=== PATIENT | female | born 1965 | race Caucasian/White ===

== ENCOUNTER 2021-06-02 22:40 | Emergency (ER) | payer MEDICAID, OTHER ==
[~2021-06-02] VITALS: Ht 162.5 cm; Wt 52.6 kg
[~2021-06-02 22:40] MED LIST: BUPR1FIL3 SL; BUSP15TA60 PO; CLN.1T PO; CLON1TAB13 PO; CLON1TAB27 PO; ESTR1TAB24 PO; HYDR-34 PO; KETO10TA PO; MEDR2.5T6 PO; OLAN2.5T3 PO; TRM50T PO
--- NOTE | 2021-06-02 23:03 | ED General ---
General Stated Complaint: HEADACHE/NAUSEA Source of Information: Patient, EMS Exam Limitations: No Limitations History of Present Illness Date Seen by Provider: Jun 02, 2021 Time Seen by Provider: 22:47 Initial Comments 55-year-old female with past medical history of hypertension, previous hepatitis C which has been treated, opioid use disorder now on Suboxone coming in via EMS from home due to elevated blood pressure and headache. She says her blood pressure is normally in the 150s systolic and for the past 2 days it's been in the 200s. She says it was 200/100 yesterday. She has had an intermittent mild to moderate headache which comes and goes. She took Advil earlier today which made it go away. It was not immediate in onset, and every time it comes on it is slow in onset. Feels like her typical headaches when she gets elevated blood pressure. She takes clonidine 0.1 mg once a day and has taken the already today. She denies any chest pain, shortness of breath, abdominal pain, current nausea, weakness, numbness, current vision changes, voice changes, or any other concerns. Allergies and Home Medications Allergies Coded Allergies: No Known Drug Allergies (Unverified , 06/02/21) Patient Home Medication List Home Medication List Reviewed: Yes Review of Systems Review of Systems Constitutional: No chills, No fever EENTM: No blurred vision Respiratory: No cough, No short of breath Cardiovascular: No chest pain, No syncope Gastrointestinal: No abdominal pain, No diarrhea, No nausea, No vomiting Genitourinary: no symptoms reported Musculoskeletal: no symptoms reported Skin: no symptoms reported Psychiatric/Neurological: Headache; Denies Numbness, Denies Paresthesia, Denies Seizure, Denies Weakness Hematologic/Lymphatic: No Symptoms Reported Immunological/Allergic: no symptoms reported All Other Systems Reviewed Negative Unless Noted: Yes Past Goqnniu-Htszpm-Lewbaz Hx Patient Social History Tobacco Use?: Yes Past Medical History Surgeries: Yes Section, Gallbladder Physical Exam Vital Signs Vital Signs - First Documented 06/02/21 22:44 Temp 37.0 Pulse 85 Resp 18 B/P (MAP) 208/112 (144) Pulse Ox 97 O2 Delivery Room Air Capillary Refill : Height, Weight, BMI Height: '" Weight: lbs. oz. kg; BMI Method: General Appearance: No Apparent Distress, WD/WN Eyes: Bilateral Eye Normal Inspection, Bilateral Eye PERRL, Bilateral Eye EOMI HEENT: PERRL/EOMI, Normal ENT Inspection, Pharynx Normal Neck: Full Range of Motion, Normal Inspection, Non Tender, Supple Respiratory: Chest Non Tender, Lungs Clear, Normal Breath Sounds, No Accessory Muscle Use, No Respiratory Distress Cardiovascular: Regular Rate, Rhythm, No Edema, Normal Peripheral Pulses Gastrointestinal: Normal Bowel Sounds, Non Tender, Soft; No Distended, No Guarding Back: Normal Inspection, No CVA Tenderness, No Vertebral Tenderness Extremity: Normal Capillary Refill, Normal Inspection, Normal Range of Motion, Non Tender, No Calf Tenderness, No Pedal Edema Neurologic/Psychiatric: Alert, Oriented x3, No Motor/Sensory Deficits, Normal Mood/Affect, lead systems 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 II-XII Norm as Tested, Other (Normal gait, normal axoufv-pd-gxkg) Skin: Normal Color, Warm/Dry Lymphatic: No Adenopathy Progress/Results/Core Measures Suspected Sepsis SIRS Temperature: Pulse: Respiratory Rate: Blood Pressure / Mean: Results/Orders My Orders Orders - SHERLEY JAIME MD Lisinopril Tablet (Zestril Tablet) (06/02/21 23:15) Nitroglycerin Ointment (Nitrobid Ointme (06/02/21 23:15) Acetaminophen Tablet (Tylenol Tablet) (06/02/21 23:15) Diphenhydramine Injection (Benadryl Inje (06/02/21 23:15) Prochlorperazine Injection (Compazine In (06/02/21 23:15) Ekg Tracing (06/02/21 23:03) Rx-Ondansetron Po (Rx-Zofran Po) (06/02/21 23:55) Medications Given in ED Current Medications Medications Dose Ordered Sig/Tom Route Start Time Stop Time Status Last Admin Dose Admin Lisinopril 10 mg ONCE ONCE PO 06/02/21 23:15 06/02/21 23:16 DC 06/02/21 23:13 10 MG Nitroglycerin 1 inch ONCE ONCE TOP 06/02/21 23:15 06/02/21 23:16 DC 06/02/21 23:13 1 INCH Prochlorperazine Edisylate 5 mg ONCE ONCE IM 06/02/21 23:15 06/02/21 23:16 DC 06/02/21 23:13 5 MG Vital Signs/I&O 06/02/21 22:44 Temp 37.0 Pulse 85 Resp 18 B/P (MAP) 208/112 (144) Pulse Ox 97 O2 Delivery Room Air Capillary Refill : Progress Note : Progress Note 55-year-old female with above history coming in due to elevated blood pressure and headache. ABCs were intact and vitals were stable on presentation. Physical exam with nonfocal neuro exam, she is well-appearing, in no abnormalities otherwise. The headache is slow onset, mild, and not consistent with a subarachnoid hemorrhage. She says almost completely gone but that she would like some medication for it. Gave her an IM cocktail for headaches. We'll give her lisinopril which she said she previously took, but has not been on it recently and we'll give her Nitropaste until the lisinopril kicks in. Her blood pressure came down and her headache improved. I told her to call her regular doctor on Friday to discuss adding medications to her regimen given clearly her blood pressure is out of control. I recommended she take her clonidine twice a day instead of once a day since that is how it is written. She was then discharged home in stable condition with strict return precautions. ECG Initial ECG Impression Date: Jun 02, 2021 Initial ECG Impression Time: 23:15 Initial ECG Rate: 71 Initial ECG Rhythm: Normal Sinus Comment Narrow QRS, normal axis, T wave inversions in V1 and V2 but no significant ST changes Departure Impression Primary Impression: Headache Qualified Codes: R51.9 - Headache, unspecified Additional Impression: Hypertension Qualified Codes: I10 - Essential (primary) hypertension Disposition: 01 HOME, SELF-CARE Condition: Stable Departure-Patient Inst. Decision time for Depature: 23:57 Referrals: NO,LOCAL PHYSICIAN (PCP/Family) Primary Care Physician Patient Instructions: Headache, Adult ED, High Blood Pressure ED Add. Discharge Instructions: Please call your doctor on Friday to discuss taking more medications for blood pressure. I do recommend you take the clonidine twice a day until you are able to follow-up because your blood pressure was severely elevated today. If you are having severe chest pain, severe shortness of breath, or other worst headache of her life I do recommend you come back to the ER. SHERLEY JAIME MD Jun 02, 2021 23:03
[2021-06-02] MEDS: ACETAMINOPHEN 500 MG TAB (TYLENOL) PO ONE ×2 (23:13→23:17)
[2021-06-02] MEDS ORDERED: PROCHLORPERAZINE 10 MG/2ML INJ (COMPAZINE) IM ONE (23:15)
[2021-06-02] MEDS ORDERED: diphenhydrAMINE 50 MG/ML INJ (BENADRYL) IM ONE (23:15)
[2021-06-02] MEDS ORDERED: NITROGLYCERIN 2% OINT 1 GM UNIT DOSE PACKET TOP ONE (23:15)
[2021-06-02] MEDS ORDERED: lisINopril 10 MG (PRINIVIL) TABLET PO ONE (23:15)
[2021-06-02 23:55] VITALS: BP 160/97
[2021-06-02] MEDS ORDERED: RX-ONDANSETRON 4 MG ODT (ZOFRAN) PPK #4 PO STA (23:55)
[2021-06-02] MEDS ORDERED: ONDANSETRON 4 MG (ZOFRAN) ORAL DISSOLVE TAB PO STA (23:55)
== END 2021-06-03 00:05 | disposition home or self-care (01) ==
LOC: ER FS 22:51
DX: R51.9 Headache, unspecified (principal); I10 Essential (primary) hypertension; Z72.0 Tobacco use
CPT/HCPCS: 93005

== ENCOUNTER 2021-09-10 02:24 | Emergency (ER) | payer MEDICAID ==
[~2021-09-10] VITALS: Ht 162.5 cm; Wt 47.9 kg
[2021-09-10 02:30] VITALS: BP 176/110
--- NOTE | 2021-09-10 03:08 | ED Psychosocial ---
General Chief Complaint: Psych/Social Disorder Stated Complaint: MENTAL HEALTH SCREEN History of Present Illness Date Seen by Provider: September 10, 2021 Time Seen by Provider: 02:42 Initial Comments 55-year-old female with PMH of drug abuse on subaxone and Delta 8/ depression/hypertension, is here with complaints of feeling depressed, stressed, and feels like nobody understands her. Patient is not suicidal and does not have a plan to kill herself.Pt has stresses with her family and finances. No physical complaints at this time. (ADEOLA LI MD) Allergies and Home Medications Allergies Coded Allergies: paroxetine (Verified Adverse Reaction, Unknown, 06/04/21) causes agitation Patient Home Medication List Home Medication List Reviewed: Yes (ADEOLA LI MD) Buprenorphine HCl/Naloxone HCl (Suboxone 8 mg-2 mg Sl Film) 1 Each Film, 1 FILM SL TID, (Reported) Entered as Reported by: YAA DIOP on 10/08/17207 Last Action: Last Taken Edited Clonazepam (Clonazepam) 1 Mg Tablet, 1 MG PO TID, (Reported) Entered as Reported by: ALEKSANDER BOLTON on 10/08/17925 Last Action: Last Taken Edited Clonidine HCl (Clonidine HCl) 0.1 Mg Tablet, 0.1 MG PO BID, (Reported) Entered as Reported by: YAA DIOP on 10/08/17207 Last Action: Last Taken Edited Ergocalciferol (Vitamin D2) (Vitamin D2) 1,250 Mcg (09628 Unit) Capsule, 50,000 UNITS PO UD, (Reported) Entered as Reported by: ERMIAS DIAZ on 09/10/21 0426 Last Action: New Order Estradiol (Estradiol Tablet) 1 Mg Tablet, 1 MG PO DAILY, (Reported) Entered as Reported by: YAA DIOP on 10/08/17207 Last Action: Last Taken Edited Discontinued Medications Buspirone HCl (Buspirone HCl) 15 Mg Tablet, 15 MG PO BID, (Reported) Discontinued Reason: Referral/FU Appt-Addtl Entered as Reported by: YAA DIOP on 10/08/17207 Last Action: Discontinued Ketorolac Tromethamine (Ketorolac Tromethamine) 10 Mg Tablet, 10 MG PO Q6H Discontinued Reason: Referral/FU Appt-Addtl Prescribed by: KENDRICK SHANKAR on 06/18/18 0855 Last Action: Discontinued Olanzapine (Zyprexa) 2.5 Mg Tablet, 2.5 MG PO DAILY Discontinued Reason: Referral/FU Appt-Addtl Prescribed by: JULIO JUNE on 02/09/21 0755 Last Action: Discontinued Review of Systems Constitutional: no symptoms reported EENTM: no symptoms reported Respiratory: no symptoms reported Cardiovascular: no symptoms reported Gastrointestinal: no symptoms reported Genitourinary: no symptoms reported Skin: no symptoms reported Psychiatric/Neurological: Depressed (ADEOLA LI MD) Past Fvviajo-Gbfqcw-Bbtftt Hx Seasonal Allergies Seasonal Allergies: No (ADEOLA LI MD) Past Medical History Surgeries: Yes Section, Gallbladder Respiratory: Yes COPD, Emphysema Currently Using CPAP: No Currently Using BIPAP: No Cardiac: Yes Hypertension Neurological: Yes Headaches /Migraines Genitourinary: No Gastrointestinal: Yes Abdominal Hernia, Hepatitis Musculoskeletal: Yes (CHRONIC PAIN SYNDROME) Endocrine: No HEENT: No Cancer: No Lung Psychosocial: Yes Anxiety, Personality Disorder Integumentary: No (CYST ON NOSE) Blood Disorders: No Adverse Reaction/Blood Tranf: No (ADEOLA LI MD) Family Medical History Psychosocial problem 19 MOTHER (schizrenia) Psychiatric Problems (ADEOLA LI MD) Physical Exam Vital Signs - First Documented 09/10/21 02:30 Temp 37.2 Pulse 57 Resp 22 B/P (MAP) 176/110 (132) Pulse Ox 98 O2 Delivery Room Air (SHERLEY JAIME MD) Capillary Refill : (ADEOLA LI MD) Height, Weight, BMI Height: 5'4.00" Weight: 105lbs. 0.0oz. 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 tested, no motor/sensory deficits, alert, oriented x 3, depressed affect Behavior/Eye Contact: cooperative Skin: normal color (ADEOLA LI MD) Progress/Results/Core Measures Results/Orders Lab Results Laboratory Tests Test 09/10/21 02:35 09/10/21 02:45 Range/Units Urine Color YELLOW Urine Clarity CLEAR Urine pH 6.0 5-9 Urine Specific [place] >=1.030 1.016-1.022 Urine Protein NEGATIVE NEGATIVE Urine Glucose (UA) NEGATIVE NEGATIVE Urine Ketones NEGATIVE NEGATIVE Urine Nitrite NEGATIVE NEGATIVE Urine Bilirubin 1+ H NEGATIVE Urine Urobilinogen 0.2 < = 1.0 MG/DL Urine Leukocyte Esterase NEGATIVE NEGATIVE Urine RBC (Auto) TRACE-I H NEGATIVE Urine RBC 5-10 H /HPF Urine WBC 10-25 H /HPF Urine Squamous Epithelial Cells 2-5 /HPF Urine Crystals NONE /LPF Urine Bacteria FEW H /HPF Urine Casts NONE /LPF Urine Mucus LARGE H /LPF Urine Culture Indicated YES Urine Opiates Screen NEGATIVE NEGATIVE Urine Oxycodone Screen NEGATIVE NEGATIVE Urine Methadone Screen NEGATIVE NEGATIVE Urine Propoxyphene Screen NEGATIVE NEGATIVE Urine Barbiturates Screen NEGATIVE NEGATIVE Ur Tricyclic Antidepressants Screen NEGATIVE NEGATIVE Urine Phencyclidine Screen NEGATIVE NEGATIVE Urine Amphetamines Screen NEGATIVE NEGATIVE Urine Methamphetamines Screen NEGATIVE NEGATIVE Urine Benzodiazepines Screen POSITIVE H NEGATIVE Urine Cocaine Screen NEGATIVE NEGATIVE Urine Cannabinoids Screen POSITIVE H NEGATIVE White Blood Count 7.7 4.3-11.0 10^3/uL Red Blood Count 5.02 3.80-5.11 10^6/uL Hemoglobin 15.1 11.5-16.0 g/dL Hematocrit 44 35-52 % Mean Corpuscular Volume 88 80-99 fL Mean Corpuscular Hemoglobin 30 25-34 pg Mean Corpuscular Hemoglobin Concent 34 32-36 g/dL Red Cell Distribution Width 12.9 10.0-14.5 % Platelet Count 213 130-400 10^3/uL Mean Platelet Volume 11.8 9.0-12.2 fL Immature Granulocyte % (Auto) 0 % Neutrophils (%) (Auto) 56 42-75 % Lymphocytes (%) (Auto) 32 12-44 % Monocytes (%) (Auto) 9 0-12 % Eosinophils (%) (Auto) 2 0-10 % Basophils (%) (Auto) 1 0-10 % Neutrophils # (Auto) 4.3 1.8-7.8 10^3/uL Lymphocytes # (Auto) 2.5 1.0-4.0 10^3/uL Monocytes # (Auto) 0.7 0.0-1.0 10^3/uL Eosinophils # (Auto) 0.2 0.0-0.3 10^3/uL Basophils # (Auto) 0.1 0.0-0.1 10^3/uL Immature Granulocyte # (Auto) 0.0 0.0-0.1 10^3/uL Sodium Level 141 135-145 MMOL/L Potassium Level 3.5 L 3.6-5.0 MMOL/L Chloride Level 102 98-107 MMOL/L Carbon Dioxide Level 26 21-32 MMOL/L Anion Gap 13 5-14 MMOL/L Blood Urea Nitrogen 19 H 7-18 MG/DL Creatinine 0.78 0.60-1.30 MG/DL Estimat Glomerular Filtration Rate 89 BUN/Creatinine Ratio 24 Glucose Level 97 70-105 MG/DL Calcium Level 9.7 8.5-10.1 MG/DL Corrected Calcium 8.5-10.1 MG/DL Total Bilirubin 0.5 0.1-1.0 MG/DL Aspartate Amino Transf (AST/SGOT) 28 5-34 U/L Alanine Aminotransferase (ALT/SGPT) 17 0-55 U/L Alkaline Phosphatase 114 40-136 U/L Total Protein 8.1 6.4-8.2 GM/DL Albumin 4.7 H 3.2-4.5 GM/DL Salicylates Level < 0.3 L 5.0-20.0 MG/DL Acetaminophen Level < 10 L 10-30 UG/ML Serum Alcohol < 10 <10 MG/DL (SHERLEY JAIME MD) My Orders Orders - SHERLEY JAIME MD Nicotine Patch (Nicoderm Patch) (09/11/21 11:45) Nicotine Patch (Nicoderm Patch) (09/10/21 11:45) Nicotine Patch (Nicoderm Patch) (09/10/21 11:51) (SHERLEY JAIME MD) Vital Signs/I&O 09/10/21 11:52 Pulse 60 Resp 14 B/P (MAP) 140/77 Pulse Ox 95 O2 Delivery Room Air (SHERLEY JAIME MD) Progress Progress Note : Progress Note - sign out Dr Jaime 1. DEPRESSION: - Labs and urine - EKG - Psych screening: Pt got into an argument with the screener and she started yelling at the screener. Pt is opting to leave AMA. - Pt was initially sitting in the waiting room for an hour or so, and finally the front desk worker asker her if he could help her, and she started screaming at him. Finally police went out to calm the situation and then the nurses convinced her to check in. Pt appears to have anger management issues. She also believes the hospital put the marijuana in her UDS and trying to sabotage her. Pt states she takes Delta 8. (ADEOLA LI MD) Progress Note : Progress Note Patient was screened and was referred to [facility]. They accepted her for transfer. (SHERLEY JAIME MD) Initial ECG Impression Date: September 10, 2021 Initial ECG Impression Time: 03:08 Initial ECG Rate: 51 Initial ECG Rhythm: S.Michael Comment Narrow QRS, normal axis, no significant ST changes or T wave abnormalities (SHERLEY JAIME MD) Departure Impression Primary Impression: Depression Qualified Codes: F32.A - Depression, unspecified Disposition: 65 XFER TO PSYCH HOSP/UNIT Condition: Stable Admissions Decision to Admit/Date: September 10, 2021 Time/Decision to Admit Time: 14:00 (SHERLEY JAIME MD) Transfer Transfer Reason: Exceeds level of care Time Spoke to Accepting Phy: 14:45 Transfer Progress Notes Accepted to [facility]. Awaiting [facility] to coordinate the transfer. Transfer Facility: [facility] Method of Transfer: [facility] (SHERLEY JAIME MD) Departure-Patient Inst. Referrals: NO,LOCAL PHYSICIAN (PCP/Family) Primary Care Physician ADEOLA LI MD September 10, 2021 03:08 SHERLEY JAIME MD September 10, 2021 07:11
[2021-09-10 03:22] LABS: BASOPHILS # (AUTO) 0.1 10^3/uL (0.0-0.1); BASOPHILS % (AUTO) 1 % (0-10); EOSINOPHILS # (AUTO) 0.2 10^3/uL (0.0-0.3); EOSINOPHILS % (AUTO) 2 % (0-10); HEMATOCRIT 44 % (35-52); HEMOGLOBIN 15.1 g/dL (11.5-16.0); LYMPHOCYTES # (AUTO) 2.5 10^3/uL (1.0-4.0); LYMPHOCYTES % (AUTO) 32 % (12-44); MEAN CORPUSCULAR HEMOGLOBIN 30 pg (25-34); MEAN CORPUSCULAR HGB CONC 34 g/dL (32-36); MEAN CORPUSCULAR VOLUME 88 fL (80-99); MEAN PLATELET VOLUME 11.8 fL (9.0-12.2); MONOCYTES # (AUTO) 0.7 10^3/uL (0.0-1.0); MONOCYTES % (AUTO) 9 % (0-12); NEUTROPHILS # (AUTO) 4.3 10^3/uL (1.8-7.8); NEUTROPHILS % (AUTO) 56 % (42-75); PLATELET COUNT 213 10^3/uL (130-400); WHITE BLOOD COUNT 7.7 10^3/uL (4.3-11.0)
[2021-09-10 03:23] LABS: CLARITY,URINE CLEAR; COLOR,URINE YELLOW; GLUCOSE, URINE (UA) NEGATIVE (NEGATIVE); KETONES,URINE NEGATIVE (NEGATIVE); LEUKOCYTE ESTERASE ,URINE NEGATIVE (NEGATIVE); NITRITE,URINE NEGATIVE (NEGATIVE); PROTEIN,URINE NEGATIVE (NEGATIVE)
[2021-09-10 03:29] LABS: BACTERIA,URINE FEW /HPF
[2021-09-10 03:30] LABS: BILIRUBIN,URINE 1+ (NEGATIVE)
[2021-09-10 03:34] LABS: AMPHETAMINE SCREEN, URINE NEGATIVE (NEGATIVE); BARBITURATE SCREEN URINE NEGATIVE (NEGATIVE); BENZODIAZEPINES SCREEN URINE POSITIVE (NEGATIVE); CANNABINOID SCREEN, URINE POSITIVE (NEGATIVE); COCAINE SCREEN URINE NEGATIVE (NEGATIVE); METHADONE STAT NEGATIVE (NEGATIVE); OPIATE SCREEN URINE NEGATIVE (NEGATIVE); OXYCODONE STAT NEGATIVE (NEGATIVE); PROPOXYPHENE STAT NEGATIVE (NEGATIVE); TRICYCLIC ANTIDEPRESSANTS SCRE NEGATIVE (NEGATIVE)
[2021-09-10 03:44] LABS: ACETAMINOPHEN < 10 UG/ML (10-30); ALANINE AMINOTRANSFERASE 17 U/L (0-55); ALBUMIN 4.7 GM/DL (3.2-4.5); ALKALINE PHOSPHATASE 114 U/L (40-136); BILIRUBIN,TOTAL 0.5 MG/DL (0.1-1.0); BUN/CREATININE RATIO 24; CALCIUM 9.7 MG/DL (8.5-10.1); CARBON DIOXIDE 26 MMOL/L (21-32); CHLORIDE 102 MMOL/L (98-107); CREATININE SERUM 0.78 MG/DL (0.60-1.30); GFR ESTIMATED 89; GLUCOSE 97 MG/DL (70-105); POTASSIUM 3.5 MMOL/L (3.6-5.0); SALICYLATE < 0.3 MG/DL (5.0-20.0); SODIUM 141 MMOL/L (135-145); TOTAL PROTEIN 8.1 GM/DL (6.4-8.2)
[2021-09-10] MEDS ORDERED: ERGO1250 PO (04:26)
[2021-09-10] MEDS ORDERED: NICOTINE 21 MG (NICODERM) PATCH TD SCH (11:45)
[2021-09-10] MEDS ORDERED: NICOTINE 21 MG (NICODERM) PATCH ONE (11:51)
[2021-09-11] MEDS ORDERED: NICOTINE 21 MG (NICODERM) PATCH TD SCH (11:45)
== END 2021-09-10 15:45 ==
LOC: EDUNIT# 02:24 → ER FS 02:27
DX: F32.A Depression, unspecified (principal)
CPT/HCPCS: 36415; 80053; 80306; 81000; 85025; 87088; 93005; 99283; G0480 ×3; 80320; 80329

== ENCOUNTER 2022-09-05 18:05 | Emergency (ER) | payer MEDICAID ==
[~2022-09-05] VITALS: Ht 165 cm; Wt 58.0 kg
[~2022-09-05 18:05] MED LIST changes: +ERGO1250 PO
[2022-09-05 18:23] VITALS: BP 160/88
== END 2022-09-05 18:15 | disposition left against medical advice (07) ==
LOC: EDUNIT# 18:05 → ER FS 18:06
DX: I10 Essential (primary) hypertension (principal); Z79.899 Other long term (current) drug therapy; Z28.310 Unvaccinated for COVID-19
CPT/HCPCS: 99281

== ENCOUNTER 2023-03-01 21:35 | Emergency (ER) | payer MEDICAID ==
[~2023-03-01] VITALS: Ht 157.4 cm; Wt 58.2 kg
--- NOTE | 2023-03-01 22:09 | ED General ---
General Stated Complaint: HBP History of Present Illness Date Seen by Provider: Mar 01, 2023 Time Seen by Provider: 21:50 Initial Comments 57-year-old female with PMH of HTN/drug addiction on methadone/Anxiety, is brought in by EMS with complaints of elevated blood pressure. Patient had not taken her night blood pressure medication and she took clonidine right before EMS appeared at her home. Denies headache, chest pain, palpitations, shortness of breath, blurry vision, neurological deficits. Allergies and Home Medications Allergies Coded Allergies: paroxetine (Verified Adverse Reaction, Unknown, 06/04/21) causes agitation Patient Home Medication List Home Medication List Reviewed: Yes Buprenorphine HCl/Naloxone HCl (Suboxone 8 mg-2 mg Sl Film) 1 Each Film, 1 FILM SL TID, (Reported) Entered as Reported by: YAA DIOP on 10/08/17207 Last Action: Reviewed Clonazepam (Clonazepam) 1 Mg Tablet, 1 MG PO TID, (Reported) Entered as Reported by: ALEKSANDER BOLTON on 10/08/17925 Last Action: Reviewed Clonidine HCl (Clonidine HCl) 0.1 Mg Tablet, 0.1 MG PO BID, (Reported) Entered as Reported by: YAA DIOP on 10/08/17207 Last Action: Reviewed Ergocalciferol (Vitamin D2) (Vitamin D2) 1,250 Mcg (54094 Unit) Capsule, 50,000 UNITS PO UD, (Reported) Entered as Reported by: ERMIAS DIAZ on 09/10/21425 Estradiol (Estradiol Tablet) 1 Mg Tablet, 1 MG PO DAILY, (Reported) Entered as Reported by: YAA DIOP on 10/08/17207 Lisinopril (Lisinopril) 5 Mg Tablet, 5 MG PO DAILY, (Reported) Entered as Reported by: ERMIAS DIAZ on 03/01/232221 Last Action: New Order Olanzapine (Olanzapine) 7.5 Mg Tablet, 7.5 MG PO DAILY, (Reported) Entered as Reported by: ERMIAS DIAZ on 03/01/232221 Last Action: New Order Review of Systems Review of Systems Constitutional: no symptoms reported EENTM: no symptoms reported Respiratory: no symptoms reported Cardiovascular: no symptoms reported Gastrointestinal: no symptoms reported Genitourinary: no symptoms reported Musculoskeletal: no symptoms reported Skin: no symptoms reported Psychiatric/Neurological: No Symptoms Reported Past Dtyaqai-Vypyjc-Xyprgx Hx Immunizations Up To Date First/Initial COVID19 Vaccinat: unvaccinated Seasonal Allergies Seasonal Allergies: No Past Medical History Surgery/Hospitalization HX: COPD, Emphysema, Anxiety/Bipolar/Insomnia, Chronic pain, HTN, hx H. Pylori Surgeries: Yes Section, Gallbladder Respiratory: Yes COPD, Emphysema Currently Using CPAP: No Currently Using BIPAP: No Cardiac: Yes Hypertension Neurological: Yes Headaches /Migraines Genitourinary: No Gastrointestinal: Yes Abdominal Hernia, Hepatitis Musculoskeletal: Yes (CHRONIC PAIN SYNDROME) Endocrine: No HEENT: No Cancer: No Lung Psychosocial: Yes Anxiety, Personality Disorder Integumentary: No (CYST ON NOSE) Blood Disorders: No Adverse Reaction/Blood Tranf: No Family Medical History Psychosocial problem 19 MOTHER (schizrenia) Psychiatric Problems Physical Exam Vital Signs Vital Signs - First Documented 03/01/23 21:35 Temp 36.8 Pulse 81 Resp 16 B/P (MAP) 161/99 (119) Pulse Ox 97 O2 Delivery Room Air Capillary Refill : Height, Weight, BMI Height: 5'4.00" Weight: 105lbs. 0.0oz. 47.437583lv; 21.00 BMI Method:Estimated General Appearance: No Apparent Distress, Anxious HEENT: PERRL/EOMI Neck: Full Range of Motion Respiratory: Lungs Clear, Normal Breath Sounds Cardiovascular: Regular Rate, Rhythm, No Edema Gastrointestinal: Non Tender, Soft Neurologic/Psychiatric: Alert, Oriented x3, No Motor/Sensory Deficits, Normal Mood/Affect, bar pilot II-XII Norm as Tested Skin: Normal Color Progress/Results/Core Measures Suspected Sepsis SIRS Temperature: Pulse: Respiratory Rate: Blood Pressure / Mean: Results/Orders Vital Signs/I&O 03/01/23 21:35 Temp 36.8 Pulse 81 Resp 16 B/P (MAP) 161/99 (119) Pulse Ox 97 O2 Delivery Room Air Capillary Refill : Progress Note : Progress Note 1. ELEVATED BLOOD PRESSURE: - BP was 160/95 for EMS. After one hour in the hour, BP is 145/90 - Pt took Clonidine at home right before EMS came to her door. - Pt does not have any symptoms - Follow up with PCP within 7days. Advised to keep BP log. Departure Impression Primary Impression: Elevated blood pressure reading with diagnosis of hypertension Disposition: 01 HOME, SELF-CARE Condition: Improved Departure-Patient Inst. Referrals: FRANSISCA WARD DO (PCP) Primary Care Physician JUSTINA MONTANO APRN (Family) Primary Care Physician Patient Instructions: High Blood Pressure (DC) Add. Discharge Instructions: - Follow up with PCP within 7days. Advised to keep BP log. ADEOLA LI MD Mar 01, 2023 22:08
[2023-03-01] MEDS ORDERED: LISI5TAB20 PO (22:22)
[2023-03-01] MEDS ORDERED: OLAN7.5T18 PO (22:22)
[2023-03-01] MEDS ORDERED: IBUPROFEN 200 MG TABLET PO ONE (23:00)
[2023-03-01 23:12] VITALS: BP 145/99
== END 2023-03-01 22:55 | disposition home or self-care (01) ==
LOC: EDUNIT# 21:39 → ER FS 21:40
DX: I10 Essential (primary) hypertension (principal); Z79.899 Other long term (current) drug therapy
CPT/HCPCS: 99283

== ENCOUNTER 2023-03-23 19:32 | Emergency (ER) | payer MEDICAID ==
[~2023-03-23] VITALS: Ht 165.1 cm; Wt 55.2 kg
[~2023-03-23 19:32] MED LIST changes: +LISI5TAB20 PO; +OLAN7.5T18 PO
[2023-03-23] MEDS ORDERED: NS IV 500 ML 500 ML IV STA (19:45)
--- NOTE | 2023-03-23 19:49 | ED General ---
General Stated Complaint: BP|DIZZNESS Source of Information: Patient Exam Limitations: No Limitations History of Present Illness Date Seen by Provider: Mar 23, 2023 Time Seen by Provider: 19:34 Initial Comments 57-year-old female with past medical history of hypertension, anxiety, chronic pain coming in due to elevated blood pressure and dizziness. She typically takes lisinopril at a low dose as well as clonidine at nighttime. She took the clonidine about an hour and a half prior to arrival. Blood pressure has been 160s to 170s at the highest over 110s. It has been going on for roughly 3 days. She says normally she is around 150s over 100. Feels sometimes like the room is spinning. Denies any headache, vision changes otherwise or currently, chest pain, shortness of breath, nausea, vomiting, weakness, numbness, diarrhea, dysuria, rash, or any other concerns. Allergies and Home Medications Allergies Coded Allergies: paroxetine (Verified Adverse Reaction, Unknown, 06/04/21) causes agitation Patient Home Medication List Home Medication List Reviewed: Yes Buprenorphine HCl/Naloxone HCl (Suboxone 8 mg-2 mg Sl Film) 1 Each Film, 1 FILM SL TID, (Reported) Entered as Reported by: YAA DIOP on 10/08/17 020 Clonazepam (Clonazepam) 1 Mg Tablet, 1 MG PO TID, (Reported) Entered as Reported by: ALEKSANDER BOLTON on 10/08/17 0926 Clonidine HCl (Clonidine HCl) 0.1 Mg Tablet, 0.1 MG PO BID, (Reported) Entered as Reported by: YAA DIOP on 10/08/17 020 Ergocalciferol (Vitamin D2) (Vitamin D2) 1,250 Mcg (14590 Unit) Capsule, 50,000 UNITS PO UD, (Reported) Entered as Reported by: ERMIAS DIAZ on 09/10/21 0426 Estradiol (Estradiol Tablet) 1 Mg Tablet, 1 MG PO DAILY, (Reported) Entered as Reported by: YAA DIOP on 10/08/17 020 Lisinopril (Lisinopril) 5 Mg Tablet, 5 MG PO DAILY, (Reported) Entered as Reported by: ERMIAS DIAZ on 03/01/23 2222 Meclizine HCl (Meclizine HCl) 25 Mg Tablet, 25 MG PO BID PRN for VERTIGO Prescribed by: SHERLEY JAIME on 03/23/232041 Olanzapine (Olanzapine) 7.5 Mg Tablet, 7.5 MG PO DAILY, (Reported) Entered as Reported by: ERMIAS DIAZ on 03/01/232221 Review of Systems Review of Systems Constitutional: No fever EENTM: no symptoms reported Respiratory: no symptoms reported Cardiovascular: see HPI Gastrointestinal: no symptoms reported Genitourinary: no symptoms reported Musculoskeletal: no symptoms reported Skin: no symptoms reported Psychiatric/Neurological: See HPI Hematologic/Lymphatic: No Symptoms Reported Past [id number] Hx Patient Social History Tobacco Use?: Yes Tobacco type used: Cigarettes Immunizations Up To Date First/Initial COVID19 Vaccinat: unvaccinated Second COVID19 Vaccination Renzo: unvaccinated Third COVID19 Vaccination Date: unvaccinated Seasonal Allergies Seasonal Allergies: No Past Medical History Surgery/Hospitalization HX: COPD, Emphysema, Anxiety/Bipolar/Insomnia, Chronic pain, HTN, hx H. Pylori Surgeries: Yes Section, Gallbladder Respiratory: Yes COPD, Emphysema Currently Using CPAP: No Currently Using BIPAP: No Cardiac: Yes Hypertension Neurological: Yes Headaches /Migraines Genitourinary: No Gastrointestinal: Yes Abdominal Hernia, Hepatitis Musculoskeletal: Yes (CHRONIC PAIN SYNDROME) Endocrine: No HEENT: No Cancer: No Lung Psychosocial: Yes Anxiety, Personality Disorder Integumentary: No (CYST ON NOSE) Blood Disorders: No Adverse Reaction/Blood Tranf: No Family Medical History Psychosocial problem 19 MOTHER (schizrenia) Psychiatric Problems Physical Exam Vital Signs Vital Signs - First Documented 03/23/23 19:35 Temp 37.3 Pulse 97 Resp 16 B/P (MAP) 181/112 (135) O2 Delivery Room Air Capillary Refill : Height, Weight, BMI Height: 5'4.00" Weight: 105lbs. 0.0oz. [id number]; 23.00 BMI Method:Estimated General Appearance: WD/WN, Anxious Eyes: Bilateral Eye Normal Inspection HEENT: PERRL/EOMI, Normal ENT Inspection, Pharynx Normal Neck: Full Range of Motion, Normal Inspection, Non Tender, Supple Respiratory: Chest Non Tender, Lungs Clear, Normal Breath Sounds, No Accessory Muscle Use, No Respiratory Distress Cardiovascular: Regular Rate, Rhythm, No Edema, Normal Peripheral Pulses Gastrointestinal: Normal Bowel Sounds, Non Tender, Soft; No Distended, No Guarding Back: Normal Inspection, No CVA Tenderness Extremity: Normal Capillary Refill, Normal Inspection, Normal Range of Motion, Non Tender, No Calf Tenderness, No Pedal Edema Neurologic/Psychiatric: Alert, Oriented x3, No Motor/Sensory Deficits, Normal Mood/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, 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 Norm as Tested, Other (Normal [id number]-[id number], normal qzjk-ei-escm, normal gait, normal visual miller and visual acuity) Skin: Normal Color, Warm/Dry Progress/Results/Core Measures Suspected Sepsis SIRS Temperature: Pulse: Respiratory Rate: Laboratory Tests 03/23/23 19:54: White Blood Count 10.9 Blood Pressure / Mean: Laboratory Tests 03/23/23 19:54: Creatinine 0.78, INR Comment 1.1, Platelet Count 187, Total Bilirubin 0.3 Results/Orders Lab Results Laboratory Tests Test 03/23/23 19:54 03/23/23 19:57 Range/Units White Blood Count 10.9 4.3-11.0 10^3/uL Red Blood Count 5.04 3.80-5.11 10^6/uL Hemoglobin 14.9 11.5-16.0 g/dL Hematocrit 44 35-52 % Mean Corpuscular Volume 88 80-99 fL Mean Corpuscular Hemoglobin 30 25-34 pg Mean Corpuscular Hemoglobin Concent 34 32-36 g/dL Red Cell Distribution Width 13.0 10.0-14.5 % Platelet Count 187 130-400 10^3/uL Mean Platelet Volume 12.0 9.0-12.2 fL Immature Granulocyte % (Auto) 0 % Neutrophils (%) (Auto) 80 H 42-75 % Lymphocytes (%) (Auto) 10 L 12-44 % Monocytes (%) (Auto) 8 0-12 % Eosinophils (%) (Auto) 1 0-10 % Basophils (%) (Auto) 0 0-10 % Neutrophils # (Auto) 8.8 H 1.8-7.8 10^3/uL Lymphocytes # (Auto) 1.1 1.0-4.0 10^3/uL Monocytes # (Auto) 0.9 0.0-1.0 10^3/uL Eosinophils # (Auto) 0.1 0.0-0.3 10^3/uL Basophils # (Auto) 0.0 0.0-0.1 10^3/uL Immature Granulocyte # (Auto) 0.0 0.0-0.1 10^3/uL Prothrombin Time 14.2 12.2-14.7 SEC INR Comment 1.1 0.8-1.4 Activated Partial Thromboplast Time 31 24-35 SEC Sodium Level 140 135-145 MMOL/L Potassium Level 3.8 3.6-5.0 MMOL/L Chloride Level 105 98-107 MMOL/L Carbon Dioxide Level 25 21-32 MMOL/L Anion Gap 10 5-14 MMOL/L Blood Urea Nitrogen 13 7-18 MG/DL Creatinine 0.78 0.60-1.30 MG/DL Estimat Glomerular Filtration Rate 88 BUN/Creatinine Ratio 17 Glucose Level 116 H 70-105 MG/DL Calcium Level 9.9 8.5-10.1 MG/DL Corrected Calcium 9.7 8.5-10.1 MG/DL Magnesium Level 2.2 1.6-2.4 MG/DL Total Bilirubin 0.3 0.1-1.0 MG/DL Aspartate Amino Transf (AST/SGOT) 24 5-34 U/L Alanine Aminotransferase (ALT/SGPT) 15 0-55 U/L Alkaline Phosphatase 109 40-136 U/L Total Protein 8.2 6.4-8.2 GM/DL Albumin 4.3 3.2-4.5 GM/DL Lipase 14 8-78 U/L Glucometer 109 70-110 MG/DL My Orders Orders - SHERLEY AJIME MD Cbc And Automated Diff (03/23/23 19:45) Comprehensive Metabolic Panel (03/23/23 19:45) Lipase (03/23/23 19:45) Magnesium (03/23/23 19:45) Protime With Inr (03/23/23 19:45) Partial Thromboplastin Time (03/23/23 19:45) Accucheck Stat ONCE (03/23/23 19:45) Ekg Tracing (03/23/23 19:45) Monitor-Rhythm Ecg Trace Only (03/23/23 19:45) Ns Iv 500 Ml (Ns Iv 500 Ml) (03/23/23 19:45) Lorazepam Tablet (Lorazepam Tablet) (03/23/23 20:15) Vital Signs/I&O 03/23/23 03/23/23 19:35 20:15 Temp 37.3 Pulse 97 Resp 16 B/P (MAP) 181/112 (135) 127/88 (101) O2 Delivery Room Air Capillary Refill : Progress Note : Progress Note 57-year-old female coming in for elevated blood pressure and lightheadedness. ABCs were intact and vitals were stable on presentation although she is hypertensive. We were going to give her lisinopril at her home dose, however her blood pressure came down on its own. She was given some oral Ativan for anxiety. EKG ordered and interpreted by me showing no acute ischemic changes. Basic labs were obtained and were significant for normal hemoglobin, normal white blood cell count, normal creatinine, normal electrolytes. Her neuroexam is completely normal with no clinical signs of stroke. Specifically, she has a normal gait and even normal tandem gait, normal xeaskw-[id number]-[id number], normal visual miller, and is well-appearing. She is not having any chest pain or shortness of breath that would be concerning for heart attack. She is tolerating p.o. She is ambulating without difficulty. Overall she is well-appearing, and she is back to her baseline. I believe she is stable for discharge with outpatient follow-up. She was sent home with strict return precautions. Prescription for meclizine sent for dizziness. ECG Initial ECG Impression Date: Mar 23, 2023 Initial ECG Impression Time: 20:04 Initial ECG Rate: 75 Initial ECG Rhythm: Normal Sinus Comment Narrow QRS, normal axis, no significant ST changes or T wave abnormalities Departure Impression Primary Impression: Hypertension Qualified Codes: I10 - Essential (primary) hypertension Additional Impression: Light-headed Disposition: 01 HOME, SELF-CARE Condition: Stable Departure-Patient Inst. Decision time for Depature: 20:45 Referrals: FRANSISCA WARD DO (PCP) Primary Care Physician JUSTINA MONTANO APRN (Family) Primary Care Physician Patient Instructions: High Blood Pressure ED Add. Discharge Instructions: Your symptoms could be related to your blood pressure. We are not seeing any signs of stroke on your exam here in the ER. If her blood pressure is continually elevated, we recommend calling your regular doctor so they can increase your medications, especially since your lisinopril is such a low dose. Scripts Meclizine HCl (Meclizine HCl) 25 Mg Tablet 25 MG PO BID PRN for VERTIGO for 14 Days, #28 TAB Prov: SHERLEY JAIME MD 03/23/23 Work/School Note: Work Release Form Date Seen in the Emergency Department: Mar 23, 2023 Return to Work: Mar 25, 2023 Restrictions: No Restrictions SHERLEY JAIME MD Mar 23, 2023 19:49
[2023-03-23 20:03] LABS: BASOPHILS % (AUTO) 0 % (0-10); EOSINOPHILS # (AUTO) 0.1 10^3/uL (0.0-0.3); EOSINOPHILS % (AUTO) 1 % (0-10); HEMATOCRIT 44 % (35-52); HEMOGLOBIN 14.9 g/dL (11.5-16.0); LYMPHOCYTES # (AUTO) 1.1 10^3/uL (1.0-4.0); LYMPHOCYTES % (AUTO) 10 % (12-44); MEAN CORPUSCULAR HEMOGLOBIN 30 pg (25-34); MEAN CORPUSCULAR HGB CONC 34 g/dL (32-36); MEAN CORPUSCULAR VOLUME 88 fL (80-99); MONOCYTES # (AUTO) 0.9 10^3/uL (0.0-1.0); MONOCYTES % (AUTO) 8 % (0-12); NEUTROPHILS # (AUTO) 8.8 10^3/uL (1.8-7.8); NEUTROPHILS % (AUTO) 80 % (42-75); PLATELET COUNT 187 10^3/uL (130-400); WHITE BLOOD COUNT 10.9 10^3/uL (4.3-11.0)
[2023-03-23] MEDS ORDERED: LORazepam 0.5 MG TABLET PO STA (20:15)
[2023-03-23 20:19] LABS: INR 1.1 (0.8-1.4); POTASSIUM 3.8 MMOL/L (3.6-5.0); PROTHROMBIN TIME PATIENT 14.2 SEC (12.2-14.7)
[2023-03-23 20:24] LABS: ALBUMIN 4.3 GM/DL (3.2-4.5); BILIRUBIN,TOTAL 0.3 MG/DL (0.1-1.0); CALCIUM 9.9 MG/DL (8.5-10.1); CREATININE SERUM 0.78 MG/DL (0.60-1.30); MAGNESIUM 2.2 MG/DL (1.6-2.4); TOTAL PROTEIN 8.2 GM/DL (6.4-8.2)
[2023-03-23] MEDS ORDERED: MECL-291 PO (20:42)
[2023-03-23 20:47] VITALS: BP 121/83
== END 2023-03-23 20:47 | disposition home or self-care (01) ==
LOC: EDUNIT# 19:32 → ER FS 19:34
DX: I10 Essential (primary) hypertension (principal); F41.9 Anxiety disorder, unspecified; Z79.899 Other long term (current) drug therapy
CPT/HCPCS: 36415; 80053; 82947; 83690; 83735; 85025; 85610; 85730; 93005; 93041